=== PATIENT | male | born 1970 | race Caucasian/White ===

== ENCOUNTER → 2016-10-12 | Outpatient (CLI) | payer BC ==
[~2016-10-12] MED LIST: FLUO20CA25 PO; HCT25T PO; LISI10TA PO; METF-380 PO; SIMV10TA3 PO
--- NOTE | 2016-10-12 14:18 | Diagnostic Imaging Report ---
PROCEDURE: US abdomen complete. TECHNIQUE: Multiple real-time grayscale images were obtained over the abdomen in various projections. INDICATION: Abdominal pain. FINDINGS: The pancreas is obscured by bowel gas. The liver is slightly prominent in size measuring 19 cm in diagonal craniocaudal direction and is hyperechoic and dense suggestive of fatty infiltration. No focal mass. The gallbladder demonstrates no definite stone. Hyperechoic lesion that appears to be attached to the wall without shadowing measuring 6 mm is likely a polyp. The right kidney is 12.2 and the left kidney is 13.3 cm in length. No hydronephrosis. There is however a small focus of ring-down artifact in the lower pole of the left kidney which may relate to a nonobstructive small stone. The spleen is borderline enlarged measuring 13 x 6.3 x 4.6 cm. The CBD is 5 mm in caliber, normal. The visualized portions of the abdominal aorta and the IVC appear grossly unremarkable. There is hepatopetal flow in the portal vein demonstrated. No ascites or fluid collection in the abdomen is noted. Sonographic Brasher's sign is reportedly negative. IMPRESSION: 1. A 6 mm gallbladder polyp. No definite stone and no evidence of cholecystitis. 2. Borderline hepatosplenomegaly. There is also suggestion of hepatic steatosis. 3. Small focal ring-down artifact in the lower pole of the left kidney which may relate to a nonobstructive small stone. Dictated by: Dictated on workstation # [id number]
--- NOTE | 2016-10-14 08:54 | Physician Query-Final Dx ---
Clinic Account Progress/Dx Physician Query: Please give a more specific abd pain diagnosis - ie, ruq, luq, ect... thank you Date of Service Oct 12, 2016 at 06:53 SELENA AGUILAR Oct 14, 2016 08:54
== END ==
LOC: RAD 06:53
PROVIDERS: ATTEND Nurse Practitioner
DX: R10.811 Right upper quadrant abdominal tenderness (principal); R10.813 Right lower quadrant abdominal tenderness
CPT/HCPCS: 76700

== ENCOUNTER 2020-12-11 05:39 | Outpatient (CLI) | payer OTHER ==
[~2020-12-11] VITALS: Ht 185.4 cm; Wt 87.7 kg
== END 2020-12-12 08:42 | disposition home or self-care (01) ==
LOC: PREOP 05:39
PROVIDERS: ATTEND Surgery
DX: Z01.818 Encounter for other preprocedural examination (principal)

== ENCOUNTER 2020-12-18 11:22 | Day surgery (SDC) | payer OTHER ==
[~2020-12-18] VITALS: Ht 185.4 cm; Wt 87.7 kg
[2020-12-18] MEDS ORDERED: LACTATED RINGERS 1,000 ML IV STA (11:33)
[2020-12-18] MEDS ORDERED: LACTATED RINGERS 1,000 ML IV ONE (11:33)
[2020-12-18 11:44] VITALS: BP 117/85
[2020-12-18] MEDS ORDERED: SERT100T PO (11:47)
[2020-12-18] MEDS ORDERED: DAPA10TA PO (11:47)
--- NOTE | 2020-12-18 11:52 | Progress Note-Pre Operative ---
Pre-Operative Progress Note H&P Reviewed The H&P was reviewed, patient examined and no changes noted. Time Seen by Provider: 11:50 Date H&P Reviewed: Dec 18, 2020 Time H&P Reviewed: 11:50 Pre-Operative Diagnosis: Family hx of colon CA LIDA LARA DO Dec 18, 2020 11:52
[2020-12-18] MEDS ORDERED: PROPOFOL INJECTION 50 ML IV ONE ×2 (12:05→12:19)
[2020-12-18] MEDS ORDERED: MIDAZOLAM 2 MG/2 ML (VERSED) VIAL ONE (12:05)
[2020-12-18 12:35] VITALS: BP 121/74
[2020-12-18 12:40] VITALS: BP 116/74
--- NOTE | 2020-12-18 13:00 | Progress Note-Post Operative ---
Post-Operative Progess Note Surgeon (s)/Dye Reel Operator (s) Surgeon LIDA LARA DO Dye Reel Operator: NONE Pre-Operative Diagnosis Family hx of colon CA Post-Operative Diagnosis Polyp diverticula int hemorrhoids Procedure & Operative Findings Date of Procedure 12/18/20 Procedure Performed/Findings After informed consent was obtained, the patient was brought to the endoscopy suite and placed in the bed in the left lateral decubitus position. He was administered IV sedation by the PROJECT MANAGER [employer], who then monitored him vitals the entire time, heart rate, blood pressure and pulse ox and the scope was inserted, started the colonoscopy. Pushed all the way into about 160 cm to get all the way to cecum; on the way in in the descending colon saw a polyp and elected to do a hot biopsy. Also took a picture of diverticula, he had some in right and lef colon. Once in the cecum took a picture of the appendiceal orifice, noted the ileocecal valve and then slowly withdrew the scope, insufflating to look circumferentially at the garcia looking at the cecum, up the ascending colon to the hepatic flexure, then down the transverse colon to the splenic flexure, into the descending colon, down into the sigmoid and finally into the rectum, retroflexed in the rectal vault, saw some moderate internal hemorrhoids and took a picture of this. The patient tolerated the procedure and he recovered in the endoscopy suite. Anesthesia Type IV sedation by PRO[employer] Estimated Blood Loss Estimated blood loss (mL): scant Specimens/Packing Specimens Removed desc colon polyp LIDA LARA DO Dec 18, 2020 13:00
--- NOTE | 2020-12-18 13:01 | Endoscopy Discharge Instruct ---
Endo Procedure/Findings Findings 1.: Polyp 2.: Diverticulosis 3.: Internal Hemorrhoids Discharge Instructions - Activity: You might feel a little sleepy until tomorrow. This is due to the medicine you received to relax you. Until tomorrow, you should: NOT drive a car, operate machinery or power tools. NOT drink any alcoholic beverages. NOT make any important decisions or sign importortant papers. Do not return to work until tomorrow, unless otherwise instructed. Resume previous activities tomorrow. Diet: Start by taking liquids. If you tolerate liquids, advance to solid food. 1.: Colonscopy in 5 years Notify Physician - If you experience excessive bleeding, unusual abdominal pain, fever, or chest pain, contact your doctor immediately. LIDA LARA DO Dec 18, 2020 13:01
[2020-12-18 13:10] VITALS: BP 116/81
[2020-12-18 13:20] VITALS: BP 116/81
== END 2020-12-18 13:20 | disposition home or self-care (01) ==
LOC: ENDO 11:22
PROVIDERS: ATTEND Surgery
DX: K63.5 Polyp of colon (principal); K57.30 Diverticulosis of large intestine without perforation or abscess without bleeding; K64.8 Other hemorrhoids; I10 Essential (primary) hypertension; E11.9 Type 2 diabetes mellitus without complications; E78.00 Pure hypercholesterolemia, unspecified; E78.5 Hyperlipidemia, unspecified; F17.210 Nicotine dependence, cigarettes, uncomplicated; Z79.84 Long term (current) use of oral hypoglycemic drugs; Z79.899 Other long term (current) drug therapy; Z80.0 Family history of malignant neoplasm of digestive organs
CPT/HCPCS: 88305

== ENCOUNTER → 2021-01-01 | Outpatient (CLI) | payer OTHER ==
[~2021-01-01] MED LIST changes: +DAPA10TA PO; +SERT100T PO
[2021-01-01 16:34] LABS: HEMATOCRIT 47 % (40-54); HEMOGLOBIN 15.3 g/dL (13.3-17.7); MEAN CORPUSCULAR HEMOGLOBIN 31 pg (25-34); MEAN CORPUSCULAR HGB CONC 32 g/dL (32-36); MEAN CORPUSCULAR VOLUME 96 fL (80-99); MEAN PLATELET VOLUME 9.8 fL (9.0-12.2); PLATELET COUNT 214 10^3/uL (130-400); WHITE BLOOD COUNT 14.6 10^3/uL (4.3-11.0)
[2021-01-01 16:44] LABS: ALBUMIN 4.4 GM/DL (3.2-4.5); CHLORIDE 104 MMOL/L (98-107); POTASSIUM 3.8 MMOL/L (3.6-5.0); SODIUM 141 MMOL/L (135-145)
[2021-01-01 16:46] LABS: CALCIUM 9.5 MG/DL (8.5-10.1)
[2021-01-01 16:47] LABS: GLUCOSE 123 MG/DL (70-105); TOTAL PROTEIN 7.4 GM/DL (6.4-8.2)
[2021-01-01 16:48] LABS: CARBON DIOXIDE 26 MMOL/L (21-32)
[2021-01-01 16:49] LABS: BILIRUBIN,TOTAL 0.3 MG/DL (0.1-1.0)
[2021-01-01 16:50] LABS: ALKALINE PHOSPHATASE 69 U/L (40-136); CREATININE SERUM 0.94 MG/DL (0.60-1.30); GFR ESTIMATED > 60
[2021-01-01 16:51] LABS: BUN/CREATININE RATIO 13
[2021-01-01 16:53] LABS: ALANINE AMINOTRANSFERASE 23 U/L (0-55)
== END ==
LOC: RT 16:17
PROVIDERS: ATTEND Nurse Practitioner Family
DX: R00.1 Bradycardia, unspecified (principal)
CPT/HCPCS: 36415; 80053; 85027; 93005

== ENCOUNTER → 2021-01-02 | Outpatient (CLI) | payer OTHER | LOC: CARD 14:30 | PROVIDERS: ATTEND Nurse Practitioner Family | DX: R00.1 Bradycardia, unspecified (principal) | CPT/HCPCS: 93225; 93226 ==

== ENCOUNTER → 2021-01-24 | Outpatient (CLI) | payer OTHER | LOC: CARD 09:00 | PROVIDERS: ATTEND Internal Medicine Cardiovascular Disease | DX: I35.8 Other nonrheumatic aortic valve disorders (principal); I10 Essential (primary) hypertension | CPT/HCPCS: 93306 ==

== ENCOUNTER → 2021-03-12 | Outpatient (CLI) | payer OTHER ==
--- NOTE | 2021-03-12 15:32 | Diagnostic Imaging Report ---
INDICATION: Left shoulder pain. TIME OF EXAM: 2:17 p.m. FINDINGS: Three views of the left shoulder show normal glenohumeral and acromioclavicular alignment. Acromiohumeral space is normal. No fracture or dislocation is seen. IMPRESSION: No acute bony abnormality is detected. Dictated by: Dictated on workstation # [id number]
--- NOTE | 2021-03-12 15:40 | Diagnostic Imaging Report ---
INDICATION: Left-sided rib and shoulder pain. COMPARISON: None. FINDINGS: Three views of the left ribs were obtained. There is no fracture, dislocation, or other acute bony abnormality identified. Visualized portions of the left lung are clear. The surrounding soft tissues appear unremarkable. No radiopaque foreign bodies are seen. IMPRESSION: No healing or displaced left-sided rib fractures. Dictated by: Dictated on workstation # [id number]
== END ==
LOC: RAD 13:55
PROVIDERS: ATTEND Internal Medicine
DX: M25.512 Pain in left shoulder (principal); M54.9 Dorsalgia, unspecified; R07.81 Pleurodynia
CPT/HCPCS: 71100; 73030

== ENCOUNTER → 2021-04-29 | Outpatient (CLI) | payer OTHER ==
--- NOTE | 2021-04-29 09:04 | Diagnostic Imaging Report ---
INDICATION: Preoperative exam for cervical spine fusion. COMPARISON: 03/06/2010 FINDINGS: Frontal and lateral views of the chest demonstrate normal heart size and pulmonary vascularity. The lungs are clear. There are no signs of infiltrate, pleural effusions or pneumothoraces. The visualized osseous structures show no acute abnormalities. IMPRESSION: 1. No acute process. No signs of infiltrates, effusions or pneumothoraces. Dictated by: Dictated on workstation # [id number]
== END ==
LOC: CARD 08:16
PROVIDERS: ATTEND Neurological Surgery
DX: Z01.818 Encounter for other preprocedural examination (principal)
CPT/HCPCS: 71046; 93005